=== PATIENT | male | born 1970 | race Caucasian/White ===

== ENCOUNTER 2024-03-17 17:24 | Observation (INO) | payer BC, SELFPAY ==
--- NOTE | 2024-03-17 | CONS_ITS ---
CONSULTATION CONSULTATION DATE: ??03/17/2024 REASON FOR CONSULTATION:? Abdominal pain, cholecystitis.? HISTORY OF PRESENT ILLNESS:? Patient is a 53-year-old male with history of hypertension, obesity, who presented to the emergency room with a three day history of diffuse upper abdominal pain, which is constant.? He has had poor p.o. intake.? No nausea or vomiting or bowel changes.? No fever, chills, night sweats.? He had no history of similar type problems or biliary colic-type symptoms.? Reports that the pain began Tuesday night and it has been persistent.? He does have a family history of gallbladder disease.? He has had no previous abdominal surgeries.? Denies aspirin or nonsteroidal anti- inflammatory drug use.? Patient does not smoke, denies alcohol use or illicit drug use.? ALLERGIES:? He has no known drug allergies.? MEDICATION:? His only medication is lisinopril.? PAST SURGICAL HISTORY:? Denies any previous surgical operations.? SOCIAL HISTORY:? He is employed as a tank truck driver.? He is single.? Denies tobacco use, alcohol, illicit drug use. FAMILY HISTORY:? Noncontributory. REVIEW OF SYSTEMS:? Ten system review of systems is negative for recent weight loss or weight gain.? Denies increased fatigue or light-headedness.? Has had no earache or tinnitus.? No sinus congestion.? No sore throat or hoarseness.? No chest pain, palpitations or syncope.? No chronic cough, shortness of breath, hemoptysis.? He has had the abdominal pain.? No nausea, vomiting or bowel changes.? No melena, hematochezia or bright red blood per rectum.? No dysuria, frequency, urgency or hematuria.? No headaches, seizures or tremors.? No easy bruising or bleeding.? No heat or cold intolerance.? No polydipsia, polyphagia or polyuria. PHYSICAL EXAM:? VITAL SIGNS:? He is afebrile.? Blood pressure is 116/60.? Pulse is 86 and regular.? Respiratory rate is 18.? O2 saturation is 98% on room air.? GENERAL:? In general, he is an obese male, in mild distress secondary to abdominal pain. HEENT:? Normocephalic, atraumatic.? Sclerae anicteric.? Conjunctiva are not injected.? Oral mucosa is moist, without lesions.? NECK:? Supple.? There is no adenopathy or thyromegaly or JVD. LUNGS:? Clear bilaterally. CARDIAC EXAM:? Regular rhythm and rate without appreciable murmurs, rubs or gallops. ABDOMEN:? Distended.? There are positive bowel sounds.? There is diffuse upper abdominal tenderness, worse in the right upper quadrant.? No masses, hepatosplenomegaly or hernias noted.? No CVA tenderness.? SKIN:? Warm and dry without lesions, rashes or ulcers. NEURO EXAM:? Non-focal.? Non-lateralizing.? Patient is awake, alert, oriented with appropriate affect. LABORATORY EVALUATION:? Revealed a white blood cell count of 20,000.? Normal H&H.? Normal liver function tests and electrolytes. IMAGING:? CT scan was personally reviewed which revealed a distended gallbladder with stones, including small stones in the neck, as well as inflammatory changes around the gallbladder. ASSESSMENT:? A 53-year-old male with evidence of acute cholecystitis. PLAN:? Hydrate the patient.? Give him IV antibiotics.? Keep him NPO and proceed with laparoscopic cholecystectomy in the morning.? Indications, risks, benefits, alternatives of proceeding with cholecystectomy were explained extensively to the patient, including risks of bleeding, infection, bile duct injury, bowel injury, need for intraoperative cholangiogram, postoperative ERCP, open procedure, blood, clot, pulmonary embolus, heart attack, anesthetic complications or need for further surgery.? All of his questions were answered.? Informed consent was obtained. CC:? Patient?s family physician ESTHER
[2024-03-17 17:29] VITALS: BP 170/89; PULSE 113; TEMP 36.6; O2SAT 98; BMI 37.3
[2024-03-17 17:46] VITALS: BP 126/96; PULSE 106; O2SAT 97
--- NOTE | 2024-03-17 17:46 | ECG_ITS ---
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
--- NOTE | 2024-03-17 17:46 | CT_ITS ---
The [address] [address] Patient Name: LEN CLARKE MRN: [id number] date: 1970 Sex: M Assigned Patient Location: ER Current Patient Location: ER Accession/Order Number: [id number] Exam Date: 03/17/2024 18:03 Report Date: 03/17/2024 18:53 At the request of: ANA RESENDEZ Procedure: CT abdomen pelvis w con PROCEDURE: CT abdomen pelvis w con CLINICAL INDICATION: 53 years Male Diffuse abdominal pain COMPARISONS: None.. TECHNIQUE: CT imaging of the abdomen and pelvis was performed following intravenous administration of 100 mL of Omnipaque 300. Coronal and sagittal reformations were created. Individualized dose optimization technique was used for the procedure performed. FINDINGS: Limited visualization of lung bases is unremarkable. There is no pleural or pericardial effusion. There is a small hiatal hernia. There is fatty infiltration of the liver. Gallbladder is distended and contains small gallstones. Gallstones are also noted within the gallbladder neck. Moderate pericholecystic inflammatory changes are also identified. Spleen, pancreas, adrenal glands and kidneys are normal. Bowel loops are normal in course and caliber, there is no obstruction or free air. Appendix is normal. There is moderate pancolonic diverticulosis. There is no ascites or adenopathy. There are minimal vascular calcifications. There is a 7 mm fat-containing umbilical hernia. There is moderate to severe degenerative disc disease at L3-L4 level. CT/CT abdomen pelvis w con IMPRESSION: 1. Findings consistent with acute cholecystitis. Follow-up surgical evaluation recommended. 2. Fatty liver. Electronically authenticated by: ADAM MATTHEW Date: 03/17/2024 18:53
--- NOTE | 2024-03-17 17:47 | ED.ABDPAIN1 ---
Documented by User: John Wolf MD 03/17/24 17:48 HPI - Abdominal Pain General Chief Complaint: Abdominal Pain Stated Complaint: Abdominal Pain Time Seen by Provider: 03/17/24 17:38 Source: patient Mode of arrival: walk-in Limitations: no limitations History of Present Illness HPI narrative: 53-year-old male presents for abdominal pain. He states it is all over his abdomen and has had it for about 72 hours and is getting worse each day. He has not had much of an appetite. No fever or nausea complaints. No vomiting constipation or diarrhea. The pain is moderate and continuous. Related Data Home Medications ?Medication ?Instructions ?Recorded ?Confirmed lisinopril 10 mg tablet 10 mg PO DAILY 03/17/24 03/17/24 Allergies Allergy/AdvReac Type Severity Reaction Status Date / Time No Known Drug Allergies Allergy Verified 03/17/24 17:31 Review of Systems ROS Narrative A ten point review of systems is negative except as noted above. Exam Narrative Exam Narrative: Nurses note and vital signs reviewed and patient is not hypoxic. General: The patient appears uncomfortable Skin: Warm, dry, no pallor noted. There is no rash noted. Head: Normocephalic, atraumatic Eye: Normal conjunctiva, no drainage Ears, Nose, Mouth, and Throat: oral mucosa is moist. Nares patent. Cardiovascular: Regular Rate and Rhythm Respiratory: Patient is in no distress, no accessory muscle use, lungs are clear to auscultation, no wheezing, rales or rhonchi Back: non-tender GI: Bowel sounds are mildly hypoactive. He has no distention but has diffuse tenderness. No mass appreciated Musculoskeletal: The patient has no evidence of calf tenderness, no pitting edema, symmetrical pulses noted bilaterally Neurological: A&O, normal speech Psychiatric: Cooperative Constitutional Vital Signs, click to edit/add: Last Vital Signs Temp 97.8 F 03/17/24 17: Pulse 107 H 03/17/24 19:33 Resp 20 03/17/24 19:33 BP 131/65 03/17/24 19:33 Pulse Ox 97 03/17/24 19:33 O2 Del Method Room Air 03/17/24 19:33 Course Vital Signs Vital signs: Vital Signs Temperature 97.8 F 03/17/24 17:29 Pulse Rate 113 H 03/17/24 17:29 Respiratory Rate 18 03/17/24 17:29 Blood Pressure 170/89 H 03/17/24 17:29 Pulse Oximetry 98 03/17/24 17:29 Oxygen Delivery Method Room Air 03/17/24 17:29 Temperature 97.8 F 03/17/24 17:29 Pulse Rate 107 H 03/17/24 19:33 Respiratory Rate 20 03/17/24 19:33 Blood Pressure 131/65 03/17/24 19:33 Pulse Oximetry 97 03/17/24 19:33 Oxygen Delivery Method Room Air 03/17/24 19:33 MDM - Abdominal Pain Lab Data Labs: Lab Results 03/17/24 03/17/24 Range/Units 17:17 18:55 WBC 20.6 H (4.0-11.0) 10^3/uL RBC 5.39 (4.70-6.10) 10^6/uL Hgb 15.0 (14.0-18.0) g/dL Hct 46.1 (42.0-54.0) % MCV 85.5 (80.0-94.0) fL MCH 27.8 (25.9-34.0) pg MCHC 32.5 (29.9-35.2) g/dL RDW 14.2 (11.0-15.0) % Plt Count 323 (150-450) 10^3/uL MPV 9.5 (9.5-13.5) fL Neut % (Auto) 83.2 H (43.0-75.0) % Lymph % (Auto) 7.0 L (20.5-60.0) % [place] % (Auto) 9.3 (1.7-12.0) % Eos % (Auto) 0.0 L (0.9-7.0) % Baso % (Auto) 0.2 (0.2-2.0) % Neut # (Auto) 17.2 H (1.4-6.5) 10^3/uL Lymph # (Auto) 1.4 (1.2-3.8) 10^3/uL [place] # (Auto) 1.9 H (0.3-0.8) 10^3/uL Eos # (Auto) 0.0 (0.0-0.7) 10^3/uL Baso # (Auto) 0.0 (0.0-0.1) 10^3/uL Abs Immat Gran (auto) 0.07 H (0.00-0.03) 10^3/uL Imm/Tot Granulo (auto) 0.3 (0.0-0.5) % Sodium 138 (136-145) mmol/L Potassium 4.1 (3.5-5.1) mmol/L Chloride 102 (98-107) mmol/L Carbon Dioxide 27.1 (21.0-32.0) mmol/L Anion Gap 13.0 BUN 13.0 (7.0-18.0) mg/dL Creatinine 1.07 (0.70-1.30) mg/dL Est GFR ( Amer) >60 (>=60) Est GFR (Non-Af Amer) >60 (>=60) BUN/Creatinine Ratio 12.1 Glucose 145 H (74-106) mg/dL Calcium 8.7 (8.5-10.1) mg/dL Total Bilirubin 1.1 H (0.2-1.0) mg/dL Direct Bilirubin 0.3 H (0.0-0.2) mg/dL AST 17 (15-37) U/L ALT 31 (16-63) U/L Alkaline Phosphatase 70 (46-116) U/L Total Protein 7.0 (6.4-8.2) g/dL Albumin 3.3 L (3.4-5.0) g/dL Globulin 3.7 g/dL Albumin/Globulin Ratio 0.9 Amylase 36 (25-115) U/L Lipase 21.0 (16.0-77.0) U/L Urine Color Yellow (YELLOW) Urine Clarity Clear (CLEAR) Urine pH 7.0 (5.0-9.0) Ur Specific [place] <=1.005 A (1.005-1.025) Urine Protein Trace (NEG/TRACE) mg/dL Urine Glucose (UA) Negative (NEGATIVE) mg/dL Urine Ketones Negative (NEGATIVE) mg/dL Urine Occult Blood Negative (NEGATIVE) Urine Nitrite Negative (NEGATIVE) Urine Bilirubin Negative (NEGATIVE) Urine Urobilinogen 0.2 (0.2-1.0) EU/dL Ur Leukocyte Esterase Negative (NEGATIVE) Urine RBC 0-2 (0-2) #/HPF Urine WBC None seen (NONE SEEN) #/HPF Ur Squamous Epith Cells None seen (NONE/RARE) #/LPF Urine Crystals None seen (None Seen) #/HPF Urine Bacteria None seen (NONE SEEN) #/HPF Urine Casts None seen (NONE SEEN) #/LPF Urine Mucus None seen (NONE SEEN) Ur Culture Indicated? No Discharge Plan Discharge Chief Complaint: Abdominal Pain Clinical Impression: Acute calculous cholecystitis Patient Disposition: Admitted as Observation Prescriptions / Home Meds: No Action lisinopril 10 mg tablet 10 mg PO DAILY Print Language: Liberian Referrals: ANH FOSTER [Primary Care Provider] - 1 week Documented by User: David Hidalgo MD 03/17/24 20:12 HPI - Abdominal Pain General Chief Complaint: Abdominal Pain Stated Complaint: Abdominal Pain Time Seen by Provider: 03/17/24 17:38 Related Data Home Medications ?Medication ?Instructions ?Recorded ?Confirmed lisinopril 10 mg tablet 10 mg PO DAILY 03/17/24 03/17/24 Allergies Allergy/AdvReac Type Severity Reaction Status Date / Time No Known Drug Allergies Allergy Verified 03/17/24 17:31 Exam Constitutional Vital Signs, click to edit/add: Last Vital Signs Temp 97.8 F 03/17/24 17:29 Pulse 107 H 03/17/24 19:33 Resp 20 03/17/24 19:33 BP 131/65 03/17/24 19:33 Pulse Ox 97 03/17/24 19:33 O2 Del Method Room Air 03/17/24 19:33 Course Vital Signs Vital signs: Vital Signs Temperature 97.8 F 03/17/24 17:29 Pulse Rate 113 H 03/17/24 17:29 Respiratory Rate 18 03/17/24 17:29 Blood Pressure 170/89 H 03/17/24 17:29 Pulse Oximetry 98 03/17/24 17:29 Oxygen Delivery Method Room Air 03/17/24 17:29 Temperature 97.8 F 03/17/24 17:29 Pulse Rate 107 H 03/17/24 19:33 Respiratory Rate 20 03/17/24 19:33 Blood Pressure 131/65 03/17/24 19:33 Pulse Oximetry 97 03/17/24 19:33 Oxygen Delivery Method Room Air 03/17/24 19:33 MDM - Abdominal Pain MDM Narrative Medical decision making narrative: patient presents with abdominal pain. care transferred at change of shift. CT returned with findings of acute cholecystitis. Discussed with Surgeon Dr Cheng and hospitalist and patient accepted for admission Lab Data Labs: Lab Results 03/17/24 03/17/24 Range/Units 17:17 18:55 WBC 20.6 H (4.0-11.0) 10^3/uL RBC 5.39 (4.70-6.10) 10^6/uL Hgb 15.0 (14.0-18.0) g/dL Hct 46.1 (42.0-54.0) % MCV 85.5 (80.0-94.0) fL MCH 27.8 (25.9-34.0) pg MCHC 32.5 (29.9-35.2) g/dL RDW 14.2 (11.0-15.0) % Plt Count 323 (150-450) 10^3/uL MPV 9.5 (9.5-13.5) fL Neut % (Auto) 83.2 H (43.0-75.0) % Lymph % (Auto) 7.0 L (20.5-60.0) % [place] % (Auto) 9.3 (1.7-12.0) % Eos % (Auto) 0.0 L (0.9-7.0) % Baso % (Auto) 0.2 (0.2-2.0) % Neut # (Auto) 17.2 H (1.4-6.5) 10^3/uL Lymph # (Auto) 1.4 (1.2-3.8) 10^3/uL [place] # (Auto) 1.9 H (0.3-0.8) 10^3/uL Eos # (Auto) 0.0 (0.0-0.7) 10^3/uL Baso # (Auto) 0.0 (0.0-0.1) 10^3/uL Abs Immat Gran (auto) 0.07 H (0.00-0.03) 10^3/uL Imm/Tot Granulo (auto) 0.3 (0.0-0.5) % Sodium 138 (136-145) mmol/L Potassium 4.1 (3.5-5.1) mmol/L Chloride 102 (98-107) mmol/L Carbon Dioxide 27.1 (21.0-32.0) mmol/L Anion Gap 13.0 BUN 13.0 (7.0-18.0) mg/dL Creatinine 1.07 (0.70-1.30) mg/dL Est GFR ( Amer) >60 (>=60) Est GFR (Non-Af Amer) >60 (>=60) BUN/Creatinine Ratio 12.1 Glucose 145 H (74-106) mg/dL Calcium 8.7 (8.5-10.1) mg/dL Total Bilirubin 1.1 H (0.2-1.0) mg/dL Direct Bilirubin 0.3 H (0.0-0.2) mg/dL AST 17 (15-37) U/L ALT 31 (16-63) U/L Alkaline Phosphatase 70 (46-116) U/L Total Protein 7.0 (6.4-8.2) g/dL Albumin 3.3 L (3.4-5.0) g/dL Globulin 3.7 g/dL Albumin/Globulin Ratio 0.9 Amylase 36 (25-115) U/L Lipase 21.0 (16.0-77.0) U/L Urine Color Yellow (YELLOW) Urine Clarity Clear (CLEAR) Urine pH 7.0 (5.0-9.0) Ur Specific [place] <=1.005 A (1.005-1.025) Urine Protein Trace (NEG/TRACE) mg/dL Urine Glucose (UA) Negative (NEGATIVE) mg/dL Urine Ketones Negative (NEGATIVE) mg/dL Urine Occult Blood Negative (NEGATIVE) Urine Nitrite Negative (NEGATIVE) Urine Bilirubin Negative (NEGATIVE) Urine Urobilinogen 0.2 (0.2-1.0) EU/dL Ur Leukocyte Esterase Negative (NEGATIVE) Urine RBC 0-2 (0-2) #/HPF Urine WBC None seen (NONE SEEN) #/HPF Ur Squamous Epith Cells None seen (NONE/RARE) #/LPF Urine Crystals None seen (None Seen) #/HPF Urine Bacteria None seen (NONE SEEN) #/HPF Urine Casts None seen (NONE SEEN) #/LPF Urine Mucus None seen (NONE SEEN) Ur Culture Indicated? No Discharge Plan Discharge Chief Complaint: Abdominal Pain Clinical Impression: Acute calculous cholecystitis Patient Disposition: Admitted as Observation Prescriptions / Home Meds: No Action lisinopril 10 mg tablet 10 mg PO DAILY Print Language: Liberian Referrals: ANH FOSTER [Primary Care Provider] - 1 week
[2024-03-17 17:54] LABS: Basophils Percent Auto 0.2 % (0.2-2.0); Hematocrit 46.1 % (42.0-54.0); Immature Granulocytes Abs Auto 0.07 10^3/uL (0.00-0.03); Immature Granulocytes Pct Auto 0.3 % (0.0-0.5); Lymphocytes Absolute Auto 1.4 10^3/uL (1.2-3.8); Mean Corpuscular HGB Conc 32.5 g/dL (29.9-35.2); Mean Corpuscular Hemoglobin 27.8 pg (25.9-34.0); Mean Corpuscular Volume 85.5 fL (80.0-94.0); Mean Platelet Volume 9.5 fL (9.5-13.5); Monocytes Absolute Auto 1.9 10^3/uL (0.3-0.8); Monocytes Percent Auto 9.3 % (1.7-12.0); Neutrophils Absolute Auto 17.2 10^3/uL (1.4-6.5); Neutrophils Percent Auto 83.2 % (43.0-75.0); Platelet Count 323 10^3/uL (150-450); Red Blood Count 5.39 10^6/uL (4.70-6.10); Red Cell Distribution Width 14.2 % (11.0-15.0); White Blood Count 20.6 10^3/uL (4.0-11.0)
[2024-03-17] MEDS: MORPHINE SULFATE 4 MG/ML VIAL IV (17:59)
[2024-03-17] MEDS: 0.9 % SODIUM CHLORIDE 1,000 ML 125 ML IV (17:59)
[2024-03-17 18:06] LABS: Alanine Aminotransferase 31 U/L (16-63); Albumin Globulin Ratio 0.9; Albumin Level 3.3 g/dL (3.4-5.0); Alkaline Phosphatase 70 U/L (46-116); Amylase 36 U/L (25-115); Aspartate Amino Transferase 17 U/L (15-37); BUN Creatinine Ratio 12.1; Bilirubin Direct 0.3 mg/dL (0.0-0.2); Bilirubin Total 1.1 mg/dL (0.2-1.0); Calcium 8.7 mg/dL (8.5-10.1); Carbon Dioxide 27.1 mmol/L (21.0-32.0); Chloride 102 mmol/L (98-107); Estimated GFR (African America >60 (>=60); Estimated GFR (Non-African Ame >60 (>=60); Globulin 3.7 g/dL; Glucose 145 mg/dL (74-106); Potassium 4.1 mmol/L (3.5-5.1); Sodium 138 mmol/L (136-145)
[2024-03-17 19:31] LABS: Bilirubin Urine NEGATIVE (NEGATIVE); Blood Urine NEGATIVE (NEGATIVE); Clarity Urine CLEAR (CLEAR); Color Urine YELLOW (YELLOW); Glucose Urine UA NEGATIVE (NEGATIVE); Ketones Urine NEGATIVE (NEGATIVE); Leukocyte Esterase Urine NEGATIVE (NEGATIVE); Nitrite Urine NEGATIVE (NEGATIVE); Protein Urine TRACE mg/dL (NEG/TRACE); Specific Gravity Urine <=1.005 (1.005-1.025); Urobilinogen Urine 0.2 EU/dL (0.2-1.0)
[2024-03-17] MEDS: PIPERACILLIN SODIUM/TAZOBACTAM 3.375 GM in 0.9 % SODIUM CHLORIDE 50 ML IV (19:32)
[2024-03-17 19:33] VITALS: BP 131/65; PULSE 107; O2SAT 97
[2024-03-17 19:48] LABS: Bacteria Urine NONE SEEN #/HPF (NONE SEEN); Cast Seen? NONE SEEN #/LPF (NONE SEEN); Crystals Seen? None Seen #/HPF (None Seen); Mucus Urine NONE SEEN (NONE SEEN); RBC Urine 0-2 #/HPF (0-2); Squamous Epithelial Cell Urine NONE SEEN #/LPF (NONE/RARE); WBC Urine NONE SEEN #/HPF (NONE SEEN)
[2024-03-17 19:49] LABS: Urine Culture Indicated NO
[2024-03-17 20:58] VITALS: BP 153/79; PULSE 98; TEMP 36.7; O2SAT 94; BMI 37.8
--- NOTE | 2024-03-17 21:09 | P.GSCN_ITS ---
History of Present Illness Consult details Consult date: 03/17/24 Reason for consult: gallstones Requesting physician: Shaikh Robi Narrative: patient seen/examined/chart and ct scan images reviewed/consult dictated; 53 yo male with h/o htn, presents with 3 day h/o constant upper abd pain, poor po intake; ct scan with distended gallbladder with stones and inflammation, consistent with acute cholecystitis; plan: NPO; IV Zosyn; hydration, pain control; proceed with LS cholecystectomy, possible intraoperative cholangiogram, possible open procedure in AM; informed consent obtained. [facility] Medical History (Updated 03/17/24 @ 21:10 by Alexsandra Mesa RN) Hypertension ?I10 - Essential (primary) hypertension (ICD-10) Femur fracture ?S72.90XA - Unspecified fracture of unspecified femur, initial encounter for closed fracture (ICD-10) Social History Within the past year, how often did you have a drink containing alcohol: never Within the past year, how often did you have six or more drinks on one occasion: never Score interpretation: A score less than 4 is consistent with normal alcohol consumption. Smoking status: Former smoker Non-prescribed substance use: denies use Highest level of school completed/degree received: high school graduate Are you now , , , , never or living with a partner: never In a typical week, how many times do you talk on the telephone with family, frie nds, or neighbors: once per week How often do you get together with friends or relatives: once per week Little interest or pleasure in doing things: not at all Feeling down, depressed, or hopeless: not at all Feel stressed/tense/nervous/anxious/difficulty sleeping: not at all Do you think of yourself as: straight/heterosexual Gender Identity: male Meds Home Medications and Allergies Home Medications ?Medication ?Instructions ?Recorded ?Confirmed ?Type lisinopril 10 mg tablet 10 mg PO DAILY 03/17/24 03/17/24 History Allergies Allergy/AdvReac Type Severity Reaction Status Date / Time No Known Drug Allergies Allergy Verified 03/17/24 17:31 Exam Constitutional Vital Signs, click to edit/add: Last Vital Signs Temp 98.1 F 03/17/24 20:58 Pulse 98 H 03/17/24 20:58 Resp 18 03/17/24 20:58 BP 153/79 H 03/17/24 20:58 Pulse Ox 94 L 03/17/24 20:58 O2 Del Method Room Air 03/17/24 20:58 Results Labs Labs: Abnormal lab results 03/17/24 03/17/24 Range/Units 17:17 18:55 WBC 20.6 H (4.0-11.0) 10^3/uL Neut % (Auto) 83.2 H (43.0-75.0) % Lymph % (Auto) 7.0 L (20.5-60.0) % Eos % (Auto) 0.0 L (0.9-7.0) % Neut # (Auto) 17.2 H (1.4-6.5) 10^3/uL Story # (Auto) 1.9 H (0.3-0.8) 10^3/uL Abs Immat Gran (auto) 0.07 H (0.00-0.03) 10^3/uL Glucose 145 H (74-106) mg/dL Total Bilirubin 1.1 H (0.2-1.0) mg/dL Direct Bilirubin 0.3 H (0.0-0.2) mg/dL Albumin 3.3 L (3.4-5.0) g/dL Ur Specific [place] <=1.005 A (1.005-1.025) Diabetes panel 03/17/24 Range/Units 17:17 Sodium 138 (136-145) mmol/L Potassium 4.1 (3.5-5.1) mmol/L Chloride 102 (98-107) mmol/L Carbon Dioxide 27.1 (21.0-32.0) mmol/L BUN 13.0 (7.0-18.0) mg/dL Creatinine 1.07 (0.70-1.30) mg/dL Glucose 145 H (74-106) mg/dL Calcium 8.7 (8.5-10.1) mg/dL AST 17 (15-37) U/L ALT 31 (16-63) U/L Alkaline Phosphatase 70 (46-116) U/L Total Protein 7.0 (6.4-8.2) g/dL Albumin 3.3 L (3.4-5.0) g/dL Calcium panel 03/17/24 Range/Units 17:17 Calcium 8.7 (8.5-10.1) mg/dL Albumin 3.3 L (3.4-5.0) g/dL Pituitary panel 03/17/24 Range/Units 17:17 Sodium 138 (136-145) mmol/L Potassium 4.1 (3.5-5.1) mmol/L Chloride 102 (98-107) mmol/L Carbon Dioxide 27.1 (21.0-32.0) mmol/L BUN 13.0 (7.0-18.0) mg/dL Creatinine 1.07 (0.70-1.30) mg/dL Glucose 145 H (74-106) mg/dL Calcium 8.7 (8.5-10.1) mg/dL Adrenal panel 03/17/24 Range/Units 17:17 Sodium 138 (136-145) mmol/L Potassium 4.1 (3.5-5.1) mmol/L Chloride 102 (98-107) mmol/L Carbon Dioxide 27.1 (21.0-32.0) mmol/L BUN 13.0 (7.0-18.0) mg/dL Creatinine 1.07 (0.70-1.30) mg/dL Glucose 145 H (74-106) mg/dL Calcium 8.7 (8.5-10.1) mg/dL Total Bilirubin 1.1 H (0.2-1.0) mg/dL AST 17 (15-37) U/L ALT 31 (16-63) U/L Alkaline Phosphatase 70 (46-116) U/L Total Protein 7.0 (6.4-8.2) g/dL Albumin 3.3 L (3.4-5.0) g/dL All other labs normal.
[2024-03-17] MEDS: PANTOPRAZOLE SODIUM 40 MG VIAL IV (21:50)
[2024-03-17] MEDS: 0.9 % SODIUM CHLORIDE 1,000 ML 150 ML IV (21:50)
[2024-03-17] MEDS: HYDROMORPHONE HCL 1 MG/ML CARTRIDGE IV (21:50)
[2024-03-17 22:15] VITALS: O2SAT 84
[2024-03-17 22:23] VITALS: O2SAT 94
[2024-03-18] VITALS (28 sets, daily range): BP systolic 113–157; BP diastolic 66–97; PULSE 65–102; TEMP 36.3–36.8; O2SAT 86–97
[2024-03-18] MEDS: PIPERACILLIN SODIUM/TAZOBACTAM 3.375 GM in 0.9 % SODIUM CHLORIDE 50 ML IV ×2 (02:13→17:18)
[2024-03-18] MEDS: HYDROMORPHONE HCL 1 MG/ML CARTRIDGE IV ×2 (02:13→06:33)
[2024-03-18 05:32] LABS: Hematocrit 43.4 % (42.0-54.0); Hemoglobin 13.9 g/dL (14.0-18.0); Mean Corpuscular Volume 87.5 fL (80.0-94.0); Mean Platelet Volume 10.1 fL (9.5-13.5); Platelet Count 290 10^3/uL (150-450); Red Blood Count 4.96 10^6/uL (4.70-6.10); Red Cell Distribution Width 14.2 % (11.0-15.0); White Blood Count 19.9 10^3/uL (4.0-11.0)
[2024-03-18 06:01] LABS: Alanine Aminotransferase 32 U/L (16-63); Albumin Globulin Ratio 0.8; Albumin Level 2.8 g/dL (3.4-5.0); Alkaline Phosphatase 63 U/L (46-116); Anion Gap 10.3; Aspartate Amino Transferase 18 U/L (15-37); Bilirubin Total 1.5 mg/dL (0.2-1.0); Calcium 8.2 mg/dL (8.5-10.1); Carbon Dioxide 28.5 mmol/L (21.0-32.0); Chloride 104 mmol/L (98-107); Estimated GFR (African America >60 (>=60); Estimated GFR (Non-African Ame >60 (>=60); Globulin 3.6 g/dL; Glucose 118 mg/dL (74-106); Potassium 3.8 mmol/L (3.5-5.1); Sodium 139 mmol/L (136-145); Total Protein 6.4 g/dL (6.4-8.2)
[2024-03-18 06:04] LABS: Lymphocytes Absolute Manual 0.19 10^3/uL (1.20-3.80); Segmented Neut Absolute Manual 17.51 10^3/uL (1.4-6.5)
[2024-03-18 06:05] LABS: Atypical Lymphocytes Abs Man 0.59; Hypersegmented Neutrophils 3+; Monocytes Absolute Manual 1.79 10^3/uL (0.30-0.80)
[2024-03-18] MEDS: LACTATED RINGER'S SOLUTION 1,000 ML 50 ML IV (08:21)
--- NOTE | 2024-03-18 09:00 | OP_ITS ---
OP Note OPERATION DATE: ??03/18/2024 PREOPERATIVE DIAGNOSIS:? Acute cholecystitis. POSTOPERATIVE DIAGNOSIS:? Acute cholecystitis with acute on chronic cholecystitis with cholelithiasis.? PROCEDURE:? Laparoscopic cholecystectomy. SURGEON:? Migel Cheng M.D. ANESTHESIA:? General endotracheal per Dr. Stroud. BRINELL TESTER:? LUIS Hendrix ESTIMATED BLOOD LOSS:? Less than 25 mL. INDICATIONS AND CONSENT:? Patient is a 53-year-old male with a four day history of upper abdominal pain which worsened.? Presented to the emergency room with tachycardia and leukocytosis and CT findings consistent with acute calculus cholecystitis.? He was admitted, kept NPO, placed on IV antibiotics and now presents for laparoscopic cholecystectomy.? Indications, risks, benefits, alternatives of proceeding were explained extensively to the patient, including risks of bleeding, infection, bile duct injury, bowel injury, bile leak, need for intraoperative cholangiogram, postoperative ERCP, open procedure, blood clot, pulmonary embolus, heart attack, anesthetic complications, need for further surgery or open procedure.? All of his questions were answered.? Informed consent was obtained. PROCEDURE:? Patient brought to the operating room, placed in the supine position.? General anesthesia was induced.? He was prepped and draped in the usual sterile fashion.? A supraumbilical incision was made with the scalpel blade and carried down through subcutaneous tissue, using blunt and sharp dissection.? The fascia was grasped and incised.? Two 0 Vicryl stay sutures were placed in either side of the midline fascia.? Sharee trocar was then inserted and secured using the stay sutures.? The abdomen was then insufflated with carbon dioxide to a pressure of 15 mm/Hg.? The scope was then inserted and the abdomen was visualized.? Patient was placed in reverse Trendelenburg position with the right side up.? The gallbladder was noted to be distended.? There were omental adhesions to it that were taken down using sharp dissection as well as cautery.? The gallbladder was aspirated with an aspirating needle.? There was noted to be clear bile, as well as purulence within the gallbladder.? The gallbladder was then grasped with an atraumatic grasper at the fundus and retracted cephalad and to the patient?s right.? Due to the patient?s size and the fatty omentum and the poor visualization at the hepatic plate, we then placed an additional 5 mm port in the left upper quadrant, under direct visualization.? The 5 mm triangular liver retractor was then used to aid retraction and expose the medial aspect of the gallbladder.? There was noted to be extensive scarring and acute inflammatory changes.? The infundibulum did rip from the grasper due to the inflammation and purulent drainage was noted, but no stones were dropped.? There was noted to be a stone impacted in the neck of the infundibulum, right at the cystic duct junction.? This was carefully dissected free.? The cystic artery was clipped with regular clips; two proximally and one distally towards the gallbladder and divided.? Some smaller branches were also controlled with clips.? The gallbladder was able to be completely freed up from the liver and the infundibulum, so that just the cystic duct, which was carefully freed up, just below the area of the stone appeared to be somewhat shortened, but it was of normal caliber.? This allowed placement of Hem-O-Uzma clips proximally towards the common duct, and a regular clip distally towards the gallbladder and then it was divided.? The gallbladder was then taken down from the liver bed using electrocautery. ?There were chronic inflammatory changes noted.? Once it was completely removed, it was brought out in an Endocatch bag through the umbilical port site.? The upper abdomen was then copiously irrigated with 4 liters of saline until clear.? There was good hemostasis, no evidence of bile leak, no purulence.? All port sites were removed under direct visualization.? There was noted to be good hemostasis.? The umbilical port site fascia was then closed with a 0 Vicryl figure of eight suture.? All port sites were infiltrated with 0.5% Marcaine.? The skin was then closed with interrupted 4-0 subcuticular Monocryl suture and skin glue.? A sterile gauze dressings was applied to the supraumbilical incision.? Patient tolerated procedure well, was extubated and sent to recovery room in good condition.? CC:? NANCY Hernandez
[2024-03-18] MEDS: LACTATED RINGER'S SOLUTION 1,000 ML 75 ML IV ×2 (09:22→12:12)
[2024-03-18] MEDS: BUPIVACAINE HCL 0.5% PF 50 MG/10 ML VIAL 20 ML INJ (10:21)
[2024-03-18] MEDS: HYDROMORPHONE HCL 0.5 MG/0.5 ML SYRINGE IV (11:01)
[2024-03-18] MEDS: KETOROLAC TROMETHAMINE 30 MG/ML VIAL IVP ×2 (11:10→21:03)
--- NOTE | 2024-03-18 12:04 | P.HP_ITS ---
HPI H&P: HPI History of Present Illness Chief complaint: Abdominal Pain, acute calculous, cholecystitis Narrative: 73-year-old male presented with generalized abdominal pain, loss of appetite and nausea since last Tuesday. His pain was persistent, worse with food intake, most severe in right upper quadrant. He denies vomiting, changes in bowel habits, fever, chills. He came to ER last evening and his workup indicated acute cholecystitis for which she was admitted overnight and made NPO. He was taken to the OR earlier today and had lap cholecystectomy and I saw him postoperatively while he was still drowsy and coming out of anesthesia. Discussed with general surgery, given his leukocytosis, recommended to monitor him overnight and continue IV antibiotics and supportive care for nausea/pain. Opioid HPI Opioid Management Most Recent Pain and Opioid Data: Last Pain Scale 3 03/18/24 11:35 Last Pain Assessment 03/18/24 11:35 Last MAR Pain Assessment 03/18/24 11:01 Last ORT Total Score 0 03/17/24 20:58 Last ORT Risk Category Low Risk 03/17/24 20:58 Review of Systems ROS Status of ROS 10 or more systems reviewed and unremark able except as noted in history and below [facility] History (Updated 03/18/24 @ 12:08 by Shaikh Robi MD) Fixation hardware in leg ?Z96.7 - Presence of other bone and tendon implants (ICD-10) Hypertension ?I10 - Essential (primary) hypertension (ICD-10) Femur fracture ?S72.90XA - Unspecified fracture of unspecified femur, initial encounter for closed fracture (ICD-10) Social History (Updated 03/17/24 @ 21:12 by Alexsandra Mesa RN) Within the past year, how often did you have a drink containing alcohol: never Within the past year, how often did you have six or more drinks on one occasion: never Score interpretation: A score less than 4 is consistent with normal alcohol consumption. Smoking status: Former smoker Non-prescribed substance use: denies use Highest level of school completed/degree received: high school graduate Are you now , , , , never or living with a partner: never In a typical week, how many times do you talk on the telephone with family, friends, or neighbors: once per week How often do you get together with friends or relatives: once per week Little interest or pleasure in doing things: not at all Feeling down, depressed, or hopeless: not at all Feel stressed/tense/nervous/anxious/difficulty sleeping: not at all Do you think of yourself as: straight/heterosexual Gender Identity: male Meds Home Medications and Allergies Home Medications ?Medication ?Instructions ?Recorded ?Confirmed ?Type lisinopril 10 mg tablet 10 mg PO DAILY 03/17/24 03/17/24 History Allergies Allergy/AdvReac Type Severity Reaction Status Date / Time No Known Drug Allergies Allergy Verified 03/17/24 17:31 Exam Constitutional Vital Signs, click to edit/add: Last Vital Signs Temp 97.4 F L 03/18/24 11:55 Pulse 84 03/18/24 11:55 Resp 16 03/18/24 11:55 BP 133/78 03/18/24 11:55 Pulse Ox 93 L 03/18/24 11:55 O2 Del Method Nasal Cannula 03/18/24 11:55 O2 Flow Rate 2 03/18/24 11:55 Documenting provider has reviewed patient's vital signs: yes Common normals: no apparent distress General appearance: cooperative and comfortable HENMT Common normals: normocephalic and head/scalp atraumatic Head and scalp: normocephalic and atraumatic Eye Common normals: conjunctivae normal and no scleral icterus Conjunctiva: conjunctiva(e) normal Respiratory Common normals: normal respiratory effort and clear to auscultation bilaterally Effort & inspection: able to speak in complete sentences Auscultation: clear to auscultation bilaterally Cardio Common normals: regular rate, S1 normal heart sound and S2 normal heart sound Rate: regular rate Heart sounds: S1 normal and S2 normal GI Other: Mild distention. Post surgical dressing at umbilicus. Smaller incisions for Laparoscopic ports. Mild post operative pain. Extremity Common normals: no clubbing, cyanosis or edema Neuro Common normals: oriented x3, moves all extremities and no focal motor deficits Sensorium/orientation: somnolent Psych Common normals: mental status grossly normal, denies hallucinations, denies homicidal ideation and denies suicidal ideation Results Labs Labs: Short CBC 03/17/24 03/18/24 Range/Units 17:17 04:41 WBC 20.6 H 19.9 H (4.0-11.0) 10^3/uL Hgb 15.0 13.9 L (14.0-18.0) g/dL Hct 46.1 43.4 (42.0-54.0) % Plt Count 323 290 (150-450) 10^3/uL BMP 03/17/24 03/18/24 17:17 04:41 Sodium 138 139 Potassium 4.1 3.8 Chloride 102 104 Carbon Dioxide 27.1 28.5 BUN 13.0 14.0 Creatinine 1.07 1.00 Glucose 145 H 118 H Calcium 8.7 8.2 L Liver Function 03/17/24 03/18/24 Range/Units 17:17 04:41 Total Bilirubin 1.1 H 1.5 H (0.2-1.0) mg/dL Direct Bilirubin 0.3 H (0.0-0.2) mg/dL AST 17 18 (15-37) U/L ALT 31 32 (16-63) U/L Alkaline Phosphatase 70 63 (46-116) U/L Albumin 3.3 L 2.8 L (3.4-5.0) g/dL Urine 03/17/24 Range/Units 18:55 Urine Color Yellow (YELLOW) Urine Clarity Clear (CLEAR) Urine pH 7.0 (5.0-9.0) Ur Specific [place] <=1.005 A (1.005-1.025) Urine Protein Trace (NEG/TRACE) mg/dL Urine Glucose (UA) Negative (NEGATIVE) mg/dL Assessment and Plan Assessment and Plan (1) Acute calculous cholecystitis: (2) Leukocytosis: Qualifiers: Leukocytosis type: leukemoid reaction Qualified Code(s): D72.823 - Leukemoid reaction (3) Hypertension: Qualifiers: Hypertension type: primary hypertension Qualified Code(s): I10 - Essential (primary) hypertension Plan Patient presented with acute calculus cholecystitis and just underwent lap cholecystectomy. Continue with IV fluids, advance diet as tolerated. IV Dilaudid as needed for pain. Continue with IV Zosyn. Monitor CBC CMP. Continue with lisinopril for hypertension.
[2024-03-18] MEDS: OXYCODONE HCL/ACETAMINOPHEN 5MG/325MG 1 TAB PO (17:18)
[2024-03-18] MEDS: PANTOPRAZOLE SODIUM 40 MG VIAL IV (21:03)
[2024-03-18] MEDS: ENOXAPARIN SODIUM 40 MG/0.4 ML SYRINGE SUBQ (22:11)
[2024-03-19] MEDS: LACTATED RINGER'S SOLUTION 1,000 ML 75 ML IV (00:59)
[2024-03-19] MEDS: PIPERACILLIN SODIUM/TAZOBACTAM 3.375 GM in 0.9 % SODIUM CHLORIDE 50 ML IV ×2 (01:00→09:36)
[2024-03-19 03:00] VITALS: BP 111/67; PULSE 81; TEMP 36.8; O2SAT 94
[2024-03-19] MEDS: KETOROLAC TROMETHAMINE 30 MG/ML VIAL IVP (03:50)
[2024-03-19 04:46] LABS: Basophils Percent Auto 0.2 % (0.2-2.0); Eosinophils Absolute Auto 0.1 10^3/uL (0.0-0.7); Eosinophils Percent Auto 0.4 % (0.9-7.0); Hematocrit 39.2 % (42.0-54.0); Hemoglobin 12.5 g/dL (14.0-18.0); Immature Granulocytes Abs Auto 0.05 10^3/uL (0.00-0.03); Immature Granulocytes Pct Auto 0.3 % (0.0-0.5); Lymphocytes Absolute Auto 1.4 10^3/uL (1.2-3.8); Lymphocytes Percent Auto 9.2 % (20.5-60.0); Mean Corpuscular HGB Conc 31.9 g/dL (29.9-35.2); Mean Corpuscular Hemoglobin 28.5 pg (25.9-34.0); Mean Corpuscular Volume 89.3 fL (80.0-94.0); Mean Platelet Volume 10.3 fL (9.5-13.5); Monocytes Absolute Auto 1.2 10^3/uL (0.3-0.8); Monocytes Percent Auto 8.1 % (1.7-12.0); Neutrophils Absolute Auto 12.1 10^3/uL (1.4-6.5); Neutrophils Percent Auto 81.8 % (43.0-75.0); Platelet Count 244 10^3/uL (150-450); Red Blood Count 4.39 10^6/uL (4.70-6.10); Red Cell Distribution Width 14.6 % (11.0-15.0); White Blood Count 14.8 10^3/uL (4.0-11.0)
[2024-03-19 05:11] LABS: Alanine Aminotransferase 27 U/L (16-63); Albumin Globulin Ratio 0.6; Albumin Level 2.1 g/dL (3.4-5.0); Alkaline Phosphatase 56 U/L (46-116); Anion Gap 9.1; Aspartate Amino Transferase 13 U/L (15-37); Calcium 7.6 mg/dL (8.5-10.1); Carbon Dioxide 28.7 mmol/L (21.0-32.0); Chloride 103 mmol/L (98-107); Estimated GFR (African America >60 (>=60); Estimated GFR (Non-African Ame >60 (>=60); Globulin 3.6 g/dL; Glucose 98 mg/dL (74-106); Potassium 3.8 mmol/L (3.5-5.1); Sodium 137 mmol/L (136-145); Total Protein 5.7 g/dL (6.4-8.2)
[2024-03-19 07:57] VITALS: BP 130/74; PULSE 73; TEMP 36.9; O2SAT 97
[2024-03-19] MEDS: PANTOPRAZOLE SODIUM 40 MG VIAL IV (09:36)
--- NOTE | 2024-03-19 10:08 | PM.DS1 ---
DS: Providers Provider Date of admission: 03/17/24 20:43 Primary care physician: ANH FOSTER Admitting clinician: Shaikh Robi Attending physician on admission: Shaikh Robi Consults: 03/18/24 07:00 Consult to General Surgeon Routine Consulting Provider: Migel Cheng Reason for consultation: Acute cholecystitis Has provider been notified: Yes Attending physician on discharge: Shaikh Robi Discharging clinician: Shaikh Robi Anticipated date of discharge: 03/19/24 DS: Diagnosis Discharge Diagnosis (1) Acute calculous cholecystitis: Assessment and plan: s/p lap anastasia, pain is reasonably controlled. Tolerating PO diet. Received Zosyn while inpatient. F/u with General surgery as outpatient. (2) Leukocytosis: Assessment and plan: Improved. Sec to cholecystitis. Stable for discharge on oral abx. Qualifiers: Leukocytosis type: leukemoid reaction Qualified Code(s): D72.823 - Leukemoid reaction (3) Hypertension: Assessment and plan: Stable. C/w lisinopril Qualifiers: Hypertension type: primary hypertension Qualified Code(s): I10 - Essential (primary) hypertension DS: Summary Hospital Course Hospital Course: 53 y o presented with nausea, anorexia, generalized abdominal pain, found to have acute calculous cholecystitis, was admitted and treated with IVF, IV zosyn, taken to OR for lap Anastasia 03/18/24, did well and is now stable for discharge. TOlerating PO diet, pain is reasonably controlled. Will d/c on zofran as needed. No need for oral abx as per general surgery. F/u with PCP and general surgery Status at Discharge Functional status at discharge: independent ambulation Overall status at discharge: patient is back to baseline Time Spent with Patient Time attestation: Total time spent providing and/or coordinating discharge services: Time spent: greater than 30 minutes Exam Constitutional Vital Signs, click to edit/add: Last Vital Signs Temp 98.5 F 03/19/24 07:57 Pulse 73 03/19/24 07:57 Resp 18 03/19/24 07:57 BP 130/74 03/19/24 07:57 Pulse Ox 97 03/19/24 07:57 O2 Del Method Nasal Cannula 03/19/24 07:57 O2 Flow Rate 2 03/19/24 07:57 Documenting provider has reviewed patient's vital signs: yes Common normals: no apparent distress General appearance: cooperative and comfortable Respiratory Common normals: normal respiratory effort and clear to auscultation bilaterally Effort & inspection: able to speak in complete sentences Auscultation: clear to auscultation bilaterally Cardio Common normals: regular rate, S1 normal heart sound and S2 normal heart sound Rate: regular rate Heart sounds: S1 normal and S2 normal GI Other: Post surgical dressing at umbilicus. Smaller incisions for Laparoscopic ports. Mild post operative pain. Neuro Common normals: oriented x3, moves all extremities and no focal motor deficits Sensorium/orientation: somnolent Psych Common normals: mental status grossly normal, denies hallucinations, denies homicidal ideation and denies suicidal ideation DS: Data Data Completed and Pending Labs on day of discharge: Labs from last 24 hours 03/19/24 04:08 WBC 14.8 H RBC 4.39 L Hgb 12.5 L Hct 39.2 L MCV 89.3 MCH 28.5 MCHC 31.9 RDW 14.6 Plt Count 244 MPV 10.3 Neut % (Auto) 81.8 H Lymph % (Auto) 9.2 L [place] % (Auto) 8.1 Eos % (Auto) 0.4 L Baso % (Auto) 0.2 Neut # (Auto) 12.1 H Lymph # (Auto) 1.4 [place] # (Auto) 1.2 H Eos # (Auto) 0.1 Baso # (Auto) 0.0 Abs Immat Gran (auto) 0.05 H Imm/Tot Granulo (auto) 0.3 Sodium 137 Potassium 3.8 Chloride 103 Carbon Dioxide 28.7 Anion Gap 9.1 BUN 20.0 H Creatinine 1.25 Est GFR ( Amer) >60 Est GFR (Non-Af Amer) >60 BUN/Creatinine Ratio 16.0 Glucose 98 Calcium 7.6 L Total Bilirubin 1.0 AST 13 L ALT 27 Alkaline Phosphatase 56 Total Protein 5.7 L Albumin 2.1 L Globulin 3.6 Albumin/Globulin Ratio 0.6 Discharge Plan Discharge Disposition: Home, Self-Care Discharge Medications: New ondansetron 4 mg tablet,disintegrating 4 mg PO Q8H PRN (Reason: nausea and vomiting) 4 Days Qty: 10 0RF oxycodone 5 mg tablet 5 mg PO Q8H PRN (Reason: pain) Qty: 7 0RF Continued lisinopril 10 mg tablet 10 mg PO DAILY Activity Detail: may shower, no tub baths or swimming for 10 days; no lifting > 10 lbs for 4 weeks; no driving while taking the Percocet. Diet: advance to your usual diet Print Language: Indonesian Patient Instructions: Cholecystitis (GEN) Forms: Portal Instructions Follow Up Appointments: PCP in one week General surgery in 1-2 weeks
--- NOTE | 2024-03-19 10:24 | PM.GSPN ---
Progress Note: A&P Assessment and Plan (1) Acute calculous cholecystitis: Assessment and Plan: POD # 1; doing well, afebrile, wbc decreasing; slight increase in bun/cr; pain controlled, no N/V; tolerating full-liquids; ambulating well; voiding without problems. (2) Leukocytosis: Qualifiers: Leukocytosis type: leukemoid reaction Qualified Code(s): D72.823 - Leukemoid reaction (3) Hypertension: Qualifiers: Hypertension type: primary hypertension Qualified Code(s): I10 - Essential (primary) hypertension Plan advance to regular diet; ok for discharge; no need for further antibiotics; no lifting > 10 lbs for 4 weeks; follow up next week. Subjective Subjective Patient reports: feels better Interval history: pain controlled, no N/V; tolerating full liquids; ambulating well; voiding without problems Exam Narrative Exam Narrative: abd: obese, soft, normal bs; incisions without erythema or drainage, no ecchymoses Constitutional Vital Signs, click to edit/add: Last Vital Signs Temp 98.5 F 03/19/24 07:57 Pulse 73 03/19/24 07:57 Resp 18 03/19/24 07:57 BP 130/74 03/19/24 07:57 Pulse Ox 97 03/19/24 07:57 O2 Del Method Nasal Cannula 03/19/24 07:57 O2 Flow Rate 2 03/19/24 07:57
[2024-03-19 11:17] VITALS: O2SAT 92
--- NOTE | 2024-03-19 12:17 | CM.NOTE ---
Rounded with Dr. Rosenbaum. Plan is for probable discharge later if Ok w Surgeon.
--- NOTE | 2024-03-20 16:28 | CM.DCFOLLOWU ---
Person spoke with:patient How are you feeling?well How is your pain? none Did you understand your discharge instructions? yes Do you have any questions about your discharge instructions? no Were you given any prescriptions at discharge? yes Were you able to get your prescriptions filled? yes Do you understand how to take your medications as ordered? yes Do you have any questions about your follow up appointment and do you plan to keep your follow up appointment? no questions reviewed follow ups Is there anything else that you would like to discuss? no Questions/Comments/Concerns/Other: none
== END 2024-03-19 11:48 | disposition home or self-care (01) ==
LOC: ER 20:14 → MS 20:52
PROVIDERS: Emergency Medicine; Registered Nurse; Surgery; Admitting Provider Internal Medicine; Emergency Provider Internal Medicine; PCP Nurse Practitioner Family; Visit Provider Internal Medicine
PROC: (CPT 790; principal; 2024-03-18 09:00)
DX: K80.00 Calculus of gallbladder with acute cholecystitis without obstruction (principal); I10 Essential (primary) hypertension; D72.829 Elevated white blood cell count, unspecified; Z87.891 Personal history of nicotine dependence; E66.9 Obesity, unspecified; Z68.37 Body mass index [BMI] 37.0-37.9, adult; Z79.899 Other long term (current) drug therapy
CPT/HCPCS: 47562; 36415; 74177; 80048; 80053; 80076; 81001; 82150; 83690; 85007; 85025; 85027; 88304; 93005; 94761; 96365; 96366; 96372; 96375; 96376; 99285; G0378; J0665; J1170; J1650; J1885; J2250; J2270; J2405; J2543; J2704; J2710; J3010; Q9967